=== PATIENT | female | born 2000 | race Hispanic/Latino ===

== ENCOUNTER 2020-11-01 12:42 | Emergency (ER) | payer SELFPAY ==
[~2020-11-01] VITALS: Ht 162.6 cm; Wt 72.6 kg
[2020-11-01] MEDS ORDERED: TYLENOL # 31 EA PO (14:39)
[2020-11-01] MEDS ORDERED: HYDROCODONE/APAP 7.5MG-325MG 1 EA TAB PO ONE (14:45)
[2020-11-01] MEDS ORDERED: HYDROCODONE/APAP 7.5MG-325MG 1 EA TAB ONE (14:49)
== END 2020-11-01 14:50 | disposition home or self-care (01) ==
LOC: ER 12:54
DX: S02.2XXA Fracture of nasal bones, initial encounter for closed fracture (principal); Y04.0XXA Assault by unarmed brawl or fight, initial encounter; Y92.008 Other place in unspecified non-institutional (private) residence as the place of occurrence of the external cause
CPT/HCPCS: 70486; 99284